=== PATIENT | male | born 1960 | race Caucasian/White ===

== ENCOUNTER → 2022-05-04 | Day surgery (SDC) | payer BC ==
[~2022-05-04] MED LIST: ASPIRIN81 MG PO; DAILY VALUE1 EACH PO; LEVOTHYROXINE125 MC1 PO; LOPID600 MG PO; PRAVASTATIN SOD20 MG PO; PROTONIX 40 MG40 M1 PO
== END | disposition home or self-care (01) ==
LOC: OR 06:46
DX: Z12.11 Encounter for screening for malignant neoplasm of colon (principal); D12.3 Benign neoplasm of transverse colon; K57.30 Diverticulosis of large intestine without perforation or abscess without bleeding; K64.1 Second degree hemorrhoids; K64.3 Fourth degree hemorrhoids; K29.51 Unspecified chronic gastritis with bleeding; K25.4 Chronic or unspecified gastric ulcer with hemorrhage; K29.81 Duodenitis with bleeding; E78.00 Pure hypercholesterolemia, unspecified; E03.9 Hypothyroidism, unspecified; E66.3 Overweight; Z79.82 Long term (current) use of aspirin; Z79.899 Other long term (current) drug therapy; Z68.26 Body mass index [BMI] 26.0-26.9, adult
CPT/HCPCS: J2704; J7040